=== PATIENT | male | born 1970 | race Caucasian/White ===

== ENCOUNTER 2017-01-23 05:40 | Emergency (ER) | payer OTHER ==
[~2017-01-23] VITALS: Ht 188 cm; Wt 132.9 kg
[~2017-01-23 05:40] MED LIST: ACETAMINOPHEN500 MG PO; ADVIL,NUPRIN,M200 MG PO; ALBUTEROL SULF8.5 GM IH; ALBUTEROL2.5 MG/3 M IH; ALPRAZOLAM0.25 M2 PO; ALPRAZOLAM0.5 MG PO; AMLODIPINE BES2.5 MG PO; AMLODIPINE BESY10 MG PO; AMLODIPINE BESYL5 MG PO; AMOX TR-K CLV1 EAC4 PO; AMOXICILLIN500 MG PO; ATARAX,VISTARIL25 MG PO; AZITHROMYCIN250 MG1 PO; AZITHROMYCIN500 M1 PO; BUSPAR7.5 MG PO; DOXYCYCLINE HY100 MG PO; DUONEB 2.5-0.5 M3 ML IH; FLONASE16 G1 BOTH NARES; IBUPROFEN800 MG PO; IMITREX100 MG PO; KLONOPIN1 MG PO; LEVAQUIN750 MG PO; LOTRIMIN ULTRA12 GM TP; MEDROL DOSEPAK4 MG PO; METOPROLOL SUCC25 MG PO; MOBIC15 MG PO; MOTRIN600 MG PO; NAPROSYN500 MG PO; NOHOMEMEDS; NORVASC10 MG PO; PEPCID20 MG PO; PREDNISONE10 MG PO; PREDNISONE20 MG PO; PROVENTIL,2.5 MG/3 M IH; PROVENTIL2.5 MG/3 M IH; ROBITUSSIN AC,T10 ML PO; TAMIFLU75 MG PO; TORADOL10 MG PO; VENTOLIN HFA18 GM IH; VERAPAMIL HCL180 MG PO; XANAX0.25 MG PO; ZESTRIL20 MG PO; ZITHROMAX Z-PA250 MG PO; ZITHROMAX250 MG PO
[2017-01-23] MEDS ORDERED: ZITHROMAX Z-PA250 MG PO (07:44)
[2017-01-23] MEDS ORDERED: PREDNISONE20 MG PO (07:44)
[2017-01-23 07:45] VITALS: BP 153/76
== END 2017-01-23 07:45 | disposition home or self-care (01) ==
LOC: EME 05:40
DX: J44.1 Chronic obstructive pulmonary disease with (acute) exacerbation (principal); R91.8 Other nonspecific abnormal finding of lung field; G47.30 Sleep apnea, unspecified; I10 Essential (primary) hypertension; F17.200 Nicotine dependence, unspecified, uncomplicated; Z88.8 Allergy status to other drugs, medicaments and biological substances
CPT/HCPCS: 71020; 94644; 99281; 99284; J1100

== ENCOUNTER 2017-07-17 19:31 | Emergency (ER) | payer OTHER ==
[~2017-07-17] VITALS: Ht 188 cm; Wt 124.6 kg
[2017-07-17 20:41] LABS: HEMATOCRIT 43.9 % (38.0-50.0); HEMOGLOBIN 15.1 G/DL (12.5-16.6); MCH 28.3 PG (29.0-34.0); MCHC 34.4 G/DL (30.0-36.0); MCV 82.2 FL (86-99); PLATELET COUNT 374 K/uL (156-360); RBC DIS.WIDTH-CV 13.3 % (11.8-14.6); RBC DIS.WIDTH-SD 39.7 % (39-53); RED BLOOD COUNT 5.34 M/uL (4.00-5.50); WHITE BLOOD COUNT 16.4 K/uL (4.1-10.2)
[2017-07-17 21:01] LABS: CHLORIDE 107 mEq/L (99-109); SODIUM 142 mEq/L (136-147)
[2017-07-17 21:02] LABS: GLUCOSE 117 mg/dL (70-99)
[2017-07-17 21:03] LABS: ERTH.SED.RATE 33 MM/HR (0-15)
[2017-07-17 21:06] LABS: GFR ESTIMATE (CALCULATED) > 59 mL/min/ (58.99-99999)
[2017-07-17 21:07] LABS: UREA NITROGEN (BUN) 14 mg/dL (9-23)
[2017-07-17 22:15] LABS: C-REACTIVE PROTEIN 5.8 MG/L (0-10)
[2017-07-17] MEDS ORDERED: AMOXICILLIN875 MG PO (22:19)
[2017-07-17] MEDS ORDERED: ATARAX,VISTARIL25 MG PO (22:19)
[2017-07-17] MEDS ORDERED: CLEOCIN300 MG PO (22:23)
[2017-07-17 22:30] VITALS: BP 123/94
== END 2017-07-17 22:31 | disposition home or self-care (01) ==
LOC: EME 19:31
PROVIDERS: Physician Assistant
DX: R51 Headache (principal); J44.9 Chronic obstructive pulmonary disease, unspecified; I10 Essential (primary) hypertension; Z88.1 Allergy status to other antibiotic agents; Z88.8 Allergy status to other drugs, medicaments and biological substances; F17.200 Nicotine dependence, unspecified, uncomplicated; G47.30 Sleep apnea, unspecified; F10.10 Alcohol abuse, uncomplicated
CPT/HCPCS: 70450; 80048; 85027; 85651; 86140; 99281; 99284; Q0177

== ENCOUNTER 2017-10-18 04:03 | Emergency (ER) | payer OTHER ==
[~2017-10-18] VITALS: Ht 188 cm; Wt 115.1 kg
[~2017-10-18 04:03] MED LIST changes: +AMOXICILLIN875 MG PO; +CLEOCIN300 MG PO
[2017-10-18] MEDS ORDERED: PREDNISONE20 MG PO (04:56)
[2017-10-18 05:06] VITALS: BP 117/71
== END 2017-10-18 05:06 | disposition home or self-care (01) ==
LOC: EME → EDBD 04:03 → EME 05:06
DX: J44.1 Chronic obstructive pulmonary disease with (acute) exacerbation (principal); J44.9 Chronic obstructive pulmonary disease, unspecified; G47.30 Sleep apnea, unspecified; F17.210 Nicotine dependence, cigarettes, uncomplicated; Z79.51 Long term (current) use of inhaled steroids; Z88.0 Allergy status to penicillin; Z88.8 Allergy status to other drugs, medicaments and biological substances
CPT/HCPCS: 93005; 99281; 99284

== ENCOUNTER 2017-11-07 09:31 | Emergency (ER) | payer OTHER ==
[~2017-11-07] VITALS: Ht 188 cm; Wt 114.0 kg
[2017-11-07 12:26] VITALS: BP 128/91
== END 2017-11-07 12:26 | disposition home or self-care (01) ==
LOC: EME 09:31
DX: S61.211A Laceration without foreign body of left index finger without damage to nail, initial encounter (principal); S61.213A Laceration without foreign body of left middle finger without damage to nail, initial encounter; W29.3XXA Contact with powered garden and outdoor hand tools and machinery, initial encounter; Z23 Encounter for immunization; F17.200 Nicotine dependence, unspecified, uncomplicated; I10 Essential (primary) hypertension; J43.9 Emphysema, unspecified; G47.30 Sleep apnea, unspecified; Z88.0 Allergy status to penicillin; Z88.8 Allergy status to other drugs, medicaments and biological substances
CPT/HCPCS: 99281; 99283; S0020